=== PATIENT | female | born 1995 | race Caucasian/White ===

== ENCOUNTER 2016-10-05 15:38 | Emergency (ER) | payer OTHER ==
--- NOTE | 2016-10-05 15:50 | ED Physician Documentation ---
Nausea/Vomiting/Diarrhea - HISTORIAN Historian: patient - HPI Stated Complaint: Been experiencing a lot of vomiting Chief Complaint: Nausea,Vomiting,Diarrhea Additional Information: 21 y/o F presents with vomiting x 3-7 days. Worse at night. Unable to keep much food down. Says she vomits 5-10 minutes after eating. Throwing up 3-4 times per day. No abdominal pain. Nonbloody, nonbilious. Feeling fatigued with few muscle pains in legs. Temperature at home max was 99.7. Endorses looser stools past 2 days. Says she has not had a BM today. Did not get a flu shot this year. 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 Concerned about . Took a home test one week ago which was normal. Not using contraception. New partner past 2 months. Also states she has been moodier lately with increased crying. Increase in stress at home but did not want to talk about specifics. Has a history of depression/anxiety and sees counselor at [facility]. Has not been taking her medications. Endorses depressed mood and loss of interest.Having passive thoughts of . No suicidal ideation. Onset: days ago Duration: worse Last known Well Date: 09/27/16 Last Known Well Time: 08:00 Last known Well Code/Unknown Code: Known Timing: gradual onset, worse Context: denies: out of country travel, bad food, recent trauma Severity: moderate - Associated Symptoms Vomiting: denies: bloody, blood-streaked, bilious Diarrhea: denies: mucous, bloody Abdominal Pain: none - ROS CONST: chills. denies: fever, sweating CVS/RESP: denies: chest pain GI/: denies: black stools, bloody stools NEURO/PSYCH: anxiety - PAST HX Past History: other (depression/anxiety) Other History: denies: gall stones Surgeries/Procedures: none Immunizations: referred to PCP Allergies/Adverse Reactions: Allergies Allergy/AdvReac Type Severity Reaction Status Date / Time Sulfa (Sulfonamide Allergy Intermediate Hives Verified 10/05/16 15:53 Antibiotics) Home Medications: Ambulatory Orders Medication Instructions Recorded Ondansetron HCl Rapdis [Zofran Odt] 4 mg PO Q8 PRN #10 tab 10/05/16 - SOCIAL HX Smoking History: cigarettes, less than 1 pack/day Alcohol Use: none Drug Use: none - FAMILY HX Family History: other (Mom - efe; thyroid problem) - VITAL SIGNS Vital Signs: Vital Signs Temp Pulse Resp BP Pulse Ox 98.2 F 78 18 118/69 99 10/05/16 15:40 10/05/16 15:40 10/05/16 15:40 10/05/16 15:40 10/05/16 15:40 Progress - Progress Progress: 16:45 CBC, CMP, Amylase, UA, beta-HCG returned. All unremarkable. Patient not requesting medication for nausea. Tolerating water. ED Results Lab/Radiology - Lab Results Lab Results: Lab Results 10/05/16 10/05/16 10/05/16 16:25 16:25 16:25 WBC RBC Hgb Hct MCV MCH MCHC RDW Plt Count Neut % (Auto) Lymph % (Auto) [place] % (Auto) Eos % (Auto) Baso % (Auto) Neut # Lymph # [place] # Eos # Baso # Reactive Lymphs % Reactive Lymphs # Sodium 138 mmol/L mmol/L (136-145) Potassium 4.1 mmol/L mmol/L (3.5-5.0) Chloride 108 mmol/L mmol/L (98-110) Carbon Dioxide 24 mmol/L mmol/L (20-32) BUN 13 mg/dL mg/dL (10-26) Creatinine 0.6 mg/dL mg/dL (0.4-1.5) Estimated Creat Clear 272 Est GFR ( Amer) > 60 (60 - ) Est GFR (Non-Af Amer) > 60 (60 - ) Glucose 96 mg/dL mg/dL (70-99) Calcium 9.2 mg/dL mg/dL (8.5-10.5) Total Bilirubin 0.4 mg/dL mg/dL (0.2-1.2) AST 15 U/L U/L (0-41) ALT 17 U/L U/L (0-45) Alkaline Phosphatase 70 U/L U/L (46-116) Total Protein 7.6 g/dL g/dL (6.0-8.5) Albumin 4.7 g/dL g/dL (3.0-5.5) Amylase 38 U/L U/L (20-104) Urine Color Yellow (YELLOW) Urine Appearance Clear (CLEAR) Urine pH 7.0 (5.0 - 8.0) Ur Specific [place] 1.020 (1.010-1.030) Urine Protein Negative mg/dL mg/dL (NEGATIVE) Urine Ketones Negative mg/dL mg/dL (NEGATIVE) Urine Occult Blood Negative (NEGATIVE) Urine Nitrite Negative (NEGATIVE) Urine Bilirubin Negative (NEGATIVE) Urine Urobilinogen 0.2 Eu Eu (0.2-1.0) Ur Leukocyte Esterase Negative (NEGATIVE) Urine Glucose Negative mg/dL mg/dL (NEGATIVE) Urine HCG, Qual Negative (NEGATIVE) 10/05/16 16:25 WBC 9.60 K/ul K/ul (4.00-12.00) RBC 4.95 M/ul M/ul (3.90-5.20) Hgb 15.6 g/dL g/dL (12.0-16.0) Hct 45.3 % % (34.5-46.5) MCV 91.5 fl fl (80.0-100.0) MCH 31.6 pg pg (28.0-34.0) MCHC 34.5 g/dL g/dL (30.0-36.0) RDW 12.7 % % (11.3-14.3) Plt Count 169 K/mm3 K/mm3 (130-400) Neut % (Auto) 73.7 % % (39.0-79.0) Lymph % (Auto) 17.7 % % (16.0-50.0) [place] % (Auto) 4.7 % % (0.0-11.0) Eos % (Auto) 2.3 % % (0.0-6.8) Baso % (Auto) 0.4 (0.0-1.5) Neut # 7.0 # k/uL # k/uL (1.4-7.7) Lymph # 1.7 # k/uL # k/uL (0.6-4.0) [place] # 0.4 # k/uL # k/uL (0.0-0.9) Eos # 0.2 # k/uL # k/uL (0.0-0.6) Baso # 0.0 # k/uL # k/uL (0.0-0.5) Reactive Lymphs % 1.2 % % (0.0-5.0) Reactive Lymphs # 0.1 # k/uL # k/uL (0.0-0.8) Sodium Potassium Chloride Carbon Dioxide BUN Creatinine Estimated Creat Clear Est GFR ( Amer) Est GFR (Non-Af Amer) Glucose Calcium Total Bilirubin AST ALT Alkaline Phosphatase Total Protein Albumin Amylase Urine Color Urine Appearance Urine pH Ur Specific [place] Urine Protein Urine Ketones Urine Occult Blood Urine Nitrite Urine Bilirubin Urine Urobilinogen Ur Leukocyte Esterase Urine Glucose Urine HCG, Qual - Orders Orders: ED Orders Category Date Time Status Place Saline Lock/IV Now Care 10/05/16 16:15 Active AMYLASE Routine Lab 10/05/16 16:25 Completed CBC/PLATELET/DIFF Routine Lab 10/05/16 16:25 Completed CHLAMYDIA TRACHOMATIS,CLEM Routine Lab 10/05/16 16:25 Received CMP Routine Lab 10/05/16 16:25 Completed HIV 1/HIV 2 ANTIBODIES (EIA) Routine Lab 10/05/16 16:25 Received NEISSERIA GONORRHOEAE,CLEM Routine Lab 10/05/16 16:25 Received UA [URINALYSIS] Routine Lab 10/05/16 16:25 Completed URINE HCG Routine Lab 10/05/16 16:25 Completed Nausea Physical Exam - EXAM General Appearance: no acute distress, anxious, other (No orthostasis) EENT: eye inspection normal, no signs of dehydration. No: dry mucous membranes Respiratory: no resp distress, chest non-tender, breath sounds normal CVS: reg rate & rhythm, heart sounds normal Abdomen: non-tender, no organomegaly. No: guarding, rebound Skin: warm/dry Neuro/Psych: oriented X3, cognition normal Discharge Clincal Impression: Nausea & vomiting Qualifiers: Vomiting type: unspecified Vomiting Intractability: non-intractable Qualified Code(s): R11.2 - Nausea with vomiting, unspecified Additional Instructions: Continue eating and drinking as tolerated. Can take Zofran for nausea. Follow up with [facility] for anxiety/depression. Follow up with primary care doctor or can return to ER as needed. Home Medications: Ambulatory Orders Ondansetron HCl Rapdis [Zofran Odt] 4 mg PO Q8 PRN #10 tab 10/05/16 Condition: Stable Disposition: 01 HOME, SELF-CARE Decision to Admit: NO Date of Decison to Admit: 10/05/16 Decision Time: 16:52
[2016-10-05 16:29] LABS: BASOPHILS % 0.4 (0.0-1.5); EOSINOPHILS % 2.3 % (0.0-6.8); LYMPHOCYTES # 1.7 # k/uL (0.6-4.0); MEAN CORPUSCULAR HEMOGLOBIN 31.6 pg (28.0-34.0); MONOCYTES # 0.4 # k/uL (0.0-0.9); MONOCYTES % 4.7 % (0.0-11.0)
[2016-10-05 16:32] LABS: APPEARANCE,URINE Clear (CLEAR); COLOR,URINE Yellow (YELLOW); OCCULT BLOOD,URINE Negative (NEGATIVE); UROBILINOGEN URINE 0.2 Eu (0.2-1.0)
[2016-10-05 16:42] LABS: eGFR (African) > 60; eGFR (Non-African) > 60
[2016-10-05 17:10] VITALS: BP 111/75
== END 2016-10-05 17:05 | disposition home or self-care (01) ==
LOC: ED 15:38
DX: R11.2 Nausea with vomiting, unspecified (principal)
CPT/HCPCS: 80053; 81002; 81025; 82150; 85025; 86703; 87491; 87591; 99283; S1016